=== PATIENT | female | born 2000 | race Caucasian/White ===

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

== ENCOUNTER 2021-03-26 04:12 | Emergency (ER) | payer MEDICAID ==
[2021-03-26] MEDS ORDERED: predniSONE 20 MG Tab PO ONE (04:28)
--- NOTE | 2021-03-26 04:36 | EDM.PDOC ---
ED HPI GENERAL MEDICAL PROBLEM - General Chief Complaint: Allergic Reaction Stated Complaint: ALLERGIC REACTION Time Seen by Provider: 03/26/21 04:15 - History of Present Illness INITIAL COMMENTS - FREE TEXT/NARRATIVE: CHIEF COMPLAINT(S): Itching HISTORY OF PRESENT ILLNESS: This is a 20-year-old woman without any significant past medical history who comes to the emergency department with a chief complaint of itching. The patient states that yesterday she dyed her hair and then after period of time she started experiencing itching throughout her body but mainly on her neck and ears. She states that she started to notice a bump on her left posterior head and her right neck. She denies any trouble speaking, trouble swallowing, voice changes, trismus, or drooling. She states that there is some redness on her ears and some swelling of her ears and along the left side of her neck. She states that she has never had a reaction like this before. She denies any chest pain, shortness of breath, wheezing, abdominal jessica n, nausea or vomiting. She states that approximately 2 hours prior to arrival she took 2 Benadryl's which did not seem to help. She denies any other symptoms. REVIEW OF SYSTEMS: Constitutional: Denies fever, chills. Eyes: Denies eye pain Ears, Nose, Mouth, & Throat: Denies earache, sore throat, trouble swallowing Lymph: Left occipital lymph node and right neck lymphadenopathy Cardiovascular: Denies chest pain Respiratory: Denies shortness of breath Gastrointestinal: Denies Nausea, vomiting, diarrhea, hematochezia. Genitourinary: Denies hematuria Skin: Positive for itching and red rash to ears and left neck MSK: Denies joint pain Neurological: Denies blurred vision, numbness, tingling, weakness Psychiatric: Denies depression PAST MEDICAL HISTORY: As per history of present illness and as reviewed below otherwise noncontributory. SURGICAL HISTORY: As per history of present illness and as reviewed below otherwise noncontributory. LMP: 2 weeks ago SOCIAL HISTORY: As per history of present illness and as reviewed below otherwise noncontributory. FAMILY HISTORY: As per history of present illness and as reviewed below otherwise noncontributory. EXAMINATION OF ORGAN SYSTEMS/BODY AREAS: Constitutional: Blood pressure was 125/81, heart rate 99, respiratory rate 16 with an oxygen saturation of 97% on room air. Temperature 36.6 General: Overall well-appearing woman in no acute distress. Psychiatric: Appropriate mood and affect. Eyes: No scleral icterus or conjunctival erythema Head: No lesions on the scalp. No skin changes. ENMT: Moist mucous membranes. No pharyngeal erythema uvula midline. Neck was supple. There is a right posterior cervical lymph node which is enlarged and tender but is mobile. No stridor. No trismus. No drooling. Bilateral earlobes are erythematous and mildly swollen. No blistering noted. There is some linear irritation along the left side of the neck on the posterior aspect. No blistering. Cardiovascular: Regular, rate, and rhythm. No gallops, murmurs, or rubs. Bilateral upper extremity pulses symmetric and intact. No peripheral edema. No JVD. Respiratory: Lungs clear to auscultation bilaterally. No wheezes, rales, or rho nchi. Gastrointestinal: Soft, non-tender, non-distended. Normoactive bowel sounds Genitourinary: No suprapubic tenderness Musculoskeletal: Normal range of motion. Skin: As noted above. Neurological: Alert, GCS 15 MEDICAL DECISION MAKING AND COURSE IN THE ED WITH INTERPRETATION/REVIEW OF DIAGNOSTIC STUDIES: This is a 20-year-old woman without any significant past medical history who comes to the emergency department with hair dye contact dermatitis with lymphadenopathy. At this time I did discuss treatment options with the patient. The patient does not exhibit an allergic reaction or a naphylaxis. She is already taken Benadryl therefore I provided her with prednisone by mouth. I did discuss with her that I did prescribe her a course of oral prednisone. I discussed that if she had any new or worsening symptoms she should return to the emergency department. She is to follow-up with primary care physician on Thursday for reevaluation of need for additional steroids. She was amenable to discharge at this time and had no further questions. DISPOSITION: The patient was discharged home in stable condition. The patient will follow up with primary care physician in 4 days CONDITION: Fair PROCEDURES: None FINAL IMPRESSION(S)/DIAGNOSES: 1. Acute hair dye contact dermatitis Abdiaziz Person M.D. Head Pain Score (Numeric/FACES): 10 - Related Data Allergies Allergy/AdvReac Type Severity Reaction Status Date / Time No Known Allergies Allergy Verified 04/27/21 04:20 Home Meds: Home Meds predniSONE [Prednisone] 50 mg PO DAILY #5 tablet 03/26/21 [Rx] Past Medical History - Past Health History Medical/Surgical History: Denies Medical/Surgical History - Infectious Disease History Infectious Disease History: Reports: None Social & Family History - Family History Family Medical History: No Pertinent Family History - Tobacco Use Tobacco Use Status *Q: Never Tobacco User - Caffeine Use Caffeine Use: Reports: None - Recreational Drug Use Recreational Drug Use: No ED ROS ALLERGIC REACTION - Review of Systems Review Of Systems: See Below ED EXAM GENERAL NO PERIP PULSE - Physical Exam Exam: See Below Course - Vital Signs Last Recorded V/S: Last Vital Signs Temp 36.6 C 03/26/21 04:20 Pulse 82 03/26/21 04:42 Resp 16 03/26/21 04:42 BP 116/72 03/26/21 04:42 Pulse Ox 98 03/26/21 04:42 - Orders/Labs/Meds Meds: Medications Discontinued Medications Generic Name Dose Route Start Last Admin Trade Name Dm PRN Reason Stop Dose Admin Prednisone 60 mg 03/26/21 04:28 03/26/21 04:41 Prednisone 20 Mg Tab PO 03/26/21 04:29 60 mg ONETIME ONE Administration Departure - Departure Time of Disposition: 04:33 Disposition: Home, Self-Care 01 Condition: Fair Clinical Impression: Contact dermatitis Qualifiers: Contact dermatitis type: irritant Contact dermatitis trigger: other chemical product Qualified Code(s): L24.5 - Irritant contact dermatitis due to other c hemical products - Discharge Information *PRESCRIPTION DRUG MONITORING PROGRAM REVIEWED*: No *COPY OF PRESCRIPTION DRUG MONITORING REPORT IN PATIENT DARCIE: No Prescriptions: predniSONE [Prednisone] 50 mg PO DAILY #5 tablet Instructions: Contact Dermatitis Referrals: PCP,None [Primary Care Provider] - Forms: ED Department Discharge Additional Instructions: You evaluate today on an emergent basis. At this time I do believe you have what is called a contact dermatitis secondary to hair dye use. At this time I do recommend the use of Benadryl 25 to 50 mg every 4-6 hours for itching. I would like you to take prednisone 50 mg daily for 5 days and follow-up with your primary care physician on Thursday. They may recommend further steroid usage. To help alleviate some of the symptoms I recommend obtaining Burow solution and saline to soak the areas that are symptomatic. In addition please use Eucerin to your ears. If you have any new or worsening symptoms such as trouble swallowing, drooling, shortness of breath, or vomiting please return to the emergency department. [facility] - Primary Care [address] [place] [id number] [facility] [address] [place] [id number] The patient is informed of any results of their evaluation and diagnostic workup and all questions are answered. They are given discharge instructions and return precautions. The patient is stable for discharge. The patient states they understand and agree with the plan and that they will return if their symptoms get worse or if they have any new concerns. The following information is given to patients seen in the emergency department who are being discharged to home. This information is to outline your options for follow-up care. We provide all patients seen in our emergency department with a follow-up referral. The need for follow-up, as well as the timing and circumstances, are variable depending upon the specifics of your emergency department visit. If you don't have a primary care physician on staff, we will provide you with a referral. We always advise you to contact your personal physician following an emergency department visit to inform them of the circumstance of the visit and for follow-up with them and/or the need for any referrals to a consulting specialist. The emergency department will also refer you to a specialist when appropriate. This referral assures that you have the opportunity for follow-up care with a specialist. All of these measure are taken in an effort to provide you with optimal care, which includes your follow-up. Under all circumstances we always encourage you to contact your private physician who remains a resource for coordinating your care. When calling for follow-up care, please make the office aware that this follow-up is from your recent emergency room visit. If for any reason you are refused follow-up, please contact the [facility] Emergency Department at and asked to speak to the emergency department charge nurse. Sepsis Event Note (ED) - Evaluation Sepsis Screening Result: No Definite Risk - Focused Exam Vital Signs: Vital Signs Temp Pulse Resp BP Pulse Ox 03/26/21 04:42 82 16 116/72 98 03/26/21 04:20 36.6 C 99 16 125/81 97
== END 2021-03-26 04:43 | disposition home or self-care (01) ==
LOC: MW.ED 04:12
DX: L24.5 Irritant contact dermatitis due to other chemical products (principal)
CPT/HCPCS: 99283; A9270